=== PATIENT | male | born 1955 | race African-American/Black ===

== ENCOUNTER 2016-12-06 12:37 | Emergency (ER) | payer MEDICAID ==
[~2016-12-06] VITALS: Ht 175.3 cm; Wt 80.0 kg
[2016-12-06 18:00] VITALS: BP 141/87
[2016-12-06] MEDS ORDERED: DEXAMETHASONE 10 MG/ML VIAL IM ONE (18:30)
[2016-12-06] MEDS ORDERED: DIPHENHYDRAMINE 50MG CAPSULE PO ONE (18:30)
== END 2016-12-06 19:13 | disposition home or self-care (01) ==
LOC: ER 15:07
DX: L03.221 Cellulitis of neck (principal); L03.313 Cellulitis of chest wall
CPT/HCPCS: 96372; 99283; J1100; Z7610; Q0163

== ENCOUNTER 2017-01-12 09:50 | Emergency (ER) | payer MEDICAID ==
[~2017-01-12] VITALS: Ht 170.2 cm; Wt 80.0 kg
[2017-01-12] MEDS ORDERED: ACETAMINOPHEN 325MG TABLET PO ONE (10:45)
[2017-01-12 12:40] VITALS: BP 135/90
== END 2017-01-12 13:03 | disposition home or self-care (01) ==
LOC: ER 09:50
DX: S40.021A Contusion of right upper arm, initial encounter (principal); S50.11XA Contusion of right forearm, initial encounter; S09.90XA Unspecified injury of head, initial encounter; R03.0 Elevated blood-pressure reading, without diagnosis of hypertension; W11.XXXA Fall on and from ladder, initial encounter; Y93.89 Activity, other specified; Y92.89 Other specified places as the place of occurrence of the external cause; Y99.8 Other external cause status
CPT/HCPCS: 29125; 70450; 71010; 72125; 73030; 73080; 73090; 73110; 99284; Z7610; A4565

== ENCOUNTER 2022-04-25 20:33 | Emergency (ER) | payer MEDICAID ==
[~2022-04-25] VITALS: Ht 177.8 cm; Wt 64.0 kg
[2022-04-25 20:34] VITALS: BP 166/96
== END 2022-04-25 21:03 | disposition left against medical advice (07) ==
LOC: ER 20:33
DX: R10.13 Epigastric pain (principal); R42 Dizziness and giddiness
CPT/HCPCS: 99283